=== PATIENT | female | born 2000 | race Caucasian/White ===

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

== ENCOUNTER 2021-10-12 04:30 | Emergency (ER) | payer MEDICAID, OTHER ==
[2021-10-12 05:11] VITALS: BP 120/76; PULSE 113
[2021-10-12] MEDS ORDERED: Sodium Chloride 0.9% 1,000 ML IV ONE (05:26)
[2021-10-12] MEDS ORDERED: diphenhydrAMINE 50 MG/ML SDV IVPUSH ONE (05:26)
[2021-10-12] MEDS ORDERED: Ketorolac 30 MG/ML SDV IVPUSH ONE (05:26)
--- NOTE | 2021-10-12 05:30 | EDM.PDOC ---
<YaniDominickian - Last Filed: 10/12/21 07:32> ED HPI GENERAL MEDICAL PROBLEM - General Chief Complaint: Headache Stated Complaint: SHARP PAIN IN HEAD GOING DOWN BACK Time Seen by Provider: 10/12/21 05:25 - Related Data Allergies Allergy/AdvReac Type Severity Reaction Status Date / Time No Known Allergies Allergy Verified 10/12/21 05:03 Home Meds: Home Meds . [No Known Home Meds] 05/08/15 [History] Course - Re-Assessments/Exams Free Text/Narrative Re-Assessment/Exam: 10/12/21 I assumed care of the pt from Janeth CARMEN at 0700HR shift change with pt sleeping comfortably, await UA results. The PA's plan is to d/c the pt home with Dx of tension CHILDERS if the UA is clear of infection. No changes to CC/HPI, Hx, ROS, or exam as documented by the PA for this encounter. Departure - Departure Disposition: Home, Self-Care 01 Clinical Impression: Tension-type headache - Discharge Information *PRESCRIPTION DRUG MONITORING PROGRAM REVIEWED*: Not Applicable *COPY OF PRESCRIPTION DRUG MONITORING REPORT IN PATIENT JAIME: Not Applicable Instructions: Tension Headache, Adult, [id number] Referrals: PCP,None [Primary Care Provider] - Forms: ED Department Discharge Additional Instructions: rest today alternate tylenol and ibuprofen 600mg every 4 hours as needed for discomfort increase fluid intake ice or heat to area depending on personal preference. <Janeth Rojas - Last Filed: 10/13/21 03:45> ED HPI GENERAL MEDICAL PROBLEM - General Source of Information: Reports: Patient, RN History Limitations: Reports: No Limitations - History of Present Illness INITIAL COMMENTS - FREE TEXT/NARRATIVE: ED with c/o severe headache back of neck going up back of head and down mid back, Nausea and vomiting tonight. Prior hx migraine headaches similar but have not felt this bad. Tried Ketrolac last cindy and did not help, unable to sleep. Vomited few times. No fever or chills. No cough. No urinary sx. Frontal Headache Pain Score (Numeric/FACES): 8 Past Medical History - Past Health History Medical/Surgical History: Denies Medical/Surgical History HEENT History: Reports: None Cardiovascular History: Reports: None Respiratory History: Reports: None Gastrointestinal History: Reports: None Genitourinary History: Reports: None PHLEBOTOMIST History: Reports: None Musculoskeletal History: Reports: None Neurological History: Reports: None Psychiatric History: Reports: None Endocrine/Metabolic History: Reports: None Hematologic History: Reports: None Immunologic History: Reports: None Oncologic (Cancer) History: Reports: None Dermatologic History: Reports: None - Infectious Disease History Infectious Disease History: Reports: Chicken Pox - Past Surgical History Head Surgeries/Procedures: Reports: None HEENT Surgical History: Reports: Oral Surgery Other HEENT Surgeries/Procedures: wisdom teeth Female Surgical History: Reports: None Social & Family History - Family History Family Medical History: No Pertinent Family History - Tobacco Use Tobacco Use Status *Q: Never Tobacco User Second Hand Smoke Exposure: No - Caffeine Use Caffeine Use: Reports: Energy Drinks - Recreational Drug Use Recreational Drug Use: No - Living Situation & Occupation Living situation: Reports: with Family ED ROS GENERAL - Review of Systems Review Of Systems: Comprehensive ROS is negative, except as noted in HPI. - Physical Exam Exam: See Below Exam Limited By: No Limitations General Appearance: Alert, Mild Distress Eye Exam: Bilateral Eye: EOMI, PERRL Ears: Normal External Exam, Normal TMs Nose: Normal Inspection Throat/Mouth: Normal Inspection Head Exam: Atraumatic, Normocephalic, Scalp Tenderness Neck: Full Range of Motion, Tender Lateral. No: Limited Range of Motion Respiratory/Chest: No Respiratory Distress, Lungs Clear, Normal Breath Sounds Cardiovascular: Normal Peripheral Pulses GI/Abdominal: Normal Bowel Sounds Neuro Exam (Abbreviated): Alert, Oriented, Normal Cognition, Normal Gait Back Exam: Normal Inspection, CVA Tenderness (R) Extremities: Normal Inspection Psychiatric: Normal Affect, Tearful Skin Exam: Warm, Dry, Intact, Normal Color Course - Vital Signs Last Recorded V/S: Last Vital Signs Temp 100.0 F 10/12/21 05:04 Pulse 113 H 10/12/21 05:04 Resp 18 10/12/21 05:04 BP 120/76 10/12/21 05:04 Pulse Ox 98 10/12/21 05:04 - Orders/Labs/Meds Labs: Laboratory Tests 10/12/21 10/12/21 10/12/21 Range/Units 05:30 05:30 07:11 WBC 9.8 (5.0-10.0) 10^3/uL RBC 4.54 (4.2-5.4) 10^6/uL Hgb 14.4 D (12.0-16.0) g/dL Hct 41.6 (37.0-47.0) % MCV 91.6 D (80-100) fL MCH 31.7 (27.0-34.0) pg MCHC 34.6 (33.0-35.0) g/dL Plt Count 356 D (150-450) 10^3/uL Neut % (Auto) 83.6 H (42.2-75.2) % Lymph % (Auto) 2.8 L (20.5-50.1) % [place] % (Auto) 12.7 H (2-8) % Eos % (Auto) 0.7 L (1.0-3.0) % Baso % (Auto) 0.2 (0.0-1.0) % Sodium 137 (136-145) mmol/L Potassium 4.3 (3.5-5.1) mmol/L Chloride 101 (98-107) mmol/L Carbon Dioxide 23 (21-32) mmol/L Anion Gap 17.3 H (7-13) mEq/L BUN 7 (7-18) mg/dL Creatinine 0.74 (0.55-1.02) mg/dL Est Cr Clr Drug Dosing 95.11 mL/min Estimated GFR (MDRD) > 60 BUN/Creatinine Ratio 9.5 (No establ ref range) Glucose 92 (70-99) mg/dL Calcium 9.1 (8.5-10.1) mg/dL Total Bilirubin 0.6 (0.2-1.0) mg/dL AST 20 (15-37) U/L ALT 23 (14-59) U/L Alkaline Phosphatase 81 (46-116) U/L Total Protein 7.9 (6.4-8.2) g/dL Albumin 4.4 (3.4-5.0) g/dL Globulin 3.5 Albumin/Globulin Ratio 1.3 Urine Color Yellow (YELLOW) Urine Appearance Slightly cloudy (CLEAR) Urine pH 8.5 (5.0-9.0) Ur Specific [place] 1.015 (1.005-1.030) Urine Protein Negative (NEGATIVE) Urine Glucose (UA) Negative (NEGATIVE) Urine Ketones 15 H (NEGATIVE) Urine Occult Blood Negative (NEGATIVE) Urine Nitrite Negative (NEGATIVE) Urine Bilirubin Negative (NEGATIVE) Urine Urobilinogen 1.0 (0.2-1.0) mg/dL Ur Leukocyte Esterase Negative (NEGATIVE) Meds: Medications Discontinued Medications Generic Name Dose Route Start Last Admin Trade Name Freq PRN Reason Stop Dose Admin Diphenhydramine HCl 50 mg 10/12/21 05:26 10/12/21 05:45 Diphenhydramine 50 Mg/Ml Sdv IVPUSH 10/12/21 05:27 50 mg ONETIME ONE Administration Sodium Chloride 1,000 mls @ 999 mls/hr 10/12/21 05:26 10/12/21 05:50 Normal Saline IV 10/12/21 06:26 999 mls/hr .BOLUS ONE Administration Ketorolac Tromethamine 30 mg 10/12/21 05:26 10/12/21 05:46 Ketorolac 30 Mg/Ml Sdv IVPUSH 10/12/21 05:27 30 mg ONETIME ONE Administration Departure - Departure Time of Disposition: 06:29 Condition: Good - Discharge Information *PRESCRIPTION DRUG MONITORING PROGRAM REVIEWED*: No Sepsis Event Note (ED) - Evaluation Sepsis Screening Result: No Definite Risk
[2021-10-12 06:01] LABS: ANION GAP 17.3 mEq/L (7-13); CHLORIDE,CL 101 mmol/L (98-107); SODIUM,NA 137 mmol/L (136-145)
== END 2021-10-12 07:43 | disposition home or self-care (01) ==
LOC: DL.ED 04:30
DX: G44.209 Tension-type headache, unspecified, not intractable (principal)
CPT/HCPCS: 36415; 80053; 81003; 85025; 96374; 96375; 99284; J1200; J1885; J7030

== ENCOUNTER 2022-04-17 11:01 | Emergency (ER) | payer MEDICAID ==
[2022-04-17] MEDS ORDERED: methylPREDNISolone Sodium Succinate 125 MG/2 ML SDV IM ONE (11:22)
[2022-04-17] MEDS ORDERED: diphenhydrAMINE 50 MG/ML SDV IM ONE (11:22)
[2022-04-17 11:24] VITALS: BP 122/73; PULSE 87
== END 2022-04-17 11:47 | disposition home or self-care (01) ==
LOC: DL.ED 11:01
DX: L50.0 Allergic urticaria (principal)
CPT/HCPCS: 96372; 99283; J1200; J2930

== ENCOUNTER 2023-05-09 18:53 | Emergency (ER) | payer OTHER, BC, MEDICAID ==
[2023-05-09 18:48] VITALS: BP 128/95; PULSE 87
[2023-05-09 18:49] LABS: BASOPHILS PERCENT AUTO 0.2 % (0.0-1.0); EOSINOPHILS PERCENT AUTO 1.1 % (1.0-3.0); HEMATOCRIT 37.8 % (37.0-47.0); HEMOGLOBIN 13.3 g/dL (12.0-16.0); LYMPHOCYTES PERCENT AUTO 22.3 % (20.5-50.1); MEAN CORPUSCULAR HGB CONC 35.2 g/dL (33.0-35.0); MEAN CORPUSCULAR VOLUME 91.1 fL (80-100); MONOCYTES PERCENT AUTO 9.5 % (2-8); NEUTROPHILS PERCENT AUTO 66.9 % (42.2-75.2); PLATELET COUNT,PLT 368 10^3/uL (150-450); RED BLOOD CELL COUNT 4.15 10^6/uL (4.2-5.4); WHITE BLOOD CELL COUNT,WBC 10.1 10^3/uL (5.0-10.0)
[~2023-05-09 18:53] MED LIST: Iopamidol 612 MG/ML 100 ML Bottle IVPUSH ONE
== END 2023-05-09 20:13 | disposition home or self-care (01) ==
LOC: DL.ED 18:53
DX: R10.12 Left upper quadrant pain (principal); M54.2 Cervicalgia; Z86.16 Personal history of COVID-19; V89.2XXA Person injured in unspecified motor-vehicle accident, traffic, initial encounter; Y92.410 Unspecified street and highway as the place of occurrence of the external cause
CPT/HCPCS: 36415; 70450; 71260; 72125; 72128; 72131; 74177; 84703; 85025; 99285; Q9967

== ENCOUNTER 2023-07-18 08:38 | Emergency (ER) | payer BC, MEDICAID ==
[2023-07-18] MEDS ORDERED: Sodium Chloride 0.9% 10 ML Syringe FLUSH PRN (08:55)
[2023-07-18] MEDS ORDERED: Sodium Chloride 0.9% 1,000 ML IV ONE (08:57)
[2023-07-18] MEDS ORDERED: Ondansetron 4 MG/2 ML SDV IV ONE (08:57)
[2023-07-18] MEDS ORDERED: Famotidine 20 MG/2 ML SDV IVPUSH ONE (08:58)
[2023-07-18 09:05] VITALS: BP 116/85; PULSE 70
[2023-07-18 09:08] LABS: BASOPHILS PERCENT AUTO 0.3 % (0.0-1.0); EOSINOPHILS PERCENT AUTO 1.5 % (1.0-3.0); HEMATOCRIT 41.5 % (37.0-47.0); HEMOGLOBIN 14.3 g/dL (12.0-16.0); LYMPHOCYTES PERCENT AUTO 23.2 % (20.5-50.1); MEAN CORPUSCULAR HEMOGLOBIN 32.1 pg (27.0-34.0); MEAN CORPUSCULAR HGB CONC 34.5 g/dL (33.0-35.0); PLATELET COUNT,PLT 389 10^3/uL (150-450); RED BLOOD CELL COUNT 4.46 10^6/uL (4.2-5.4); WHITE BLOOD CELL COUNT,WBC 6.7 10^3/uL (5.0-10.0)
[2023-07-18 09:10] LABS: APPEARANCE,URINE CLOUDY (CLEAR); BILIRUBIN,URINE NEGATIVE (NEGATIVE); COLOR,URINE YELLOW (YELLOW); GLUCOSE,URINE NEGATIVE (NEGATIVE); KETONES,URINE NEGATIVE (NEGATIVE); LEUKOCYTE ESTERASE,URINE SMALL (NEGATIVE); NITRITE,URINE NEGATIVE (NEGATIVE); OCCULT BLOOD,URINE TRACE-INTACT (NEGATIVE); PH,URINE 6.5 (5.0-9.0); PROTEIN,URINE NEGATIVE (NEGATIVE); UROBILINOGEN,URINE 0.2 mg/dL (0.2-1.0)
[2023-07-18 09:29] LABS: HCG QUALITATIVE,SERUM NEGATIVE (NEGATIVE)
[2023-07-18 09:31] LABS: A/G RATIO 1.1; ALANINE AMINOTRANSFERASE,ALT 19 U/L (14-59); ALKALINE PHOSPHATASE 87 U/L (46-116); ASPARTATE AMNIOTRANSFERASE,AST 11 U/L (15-37); BILIRUBIN TOTAL 0.3 mg/dL (0.2-1.0); BLOOD UREA NITROGEN,BUN 8 mg/dL (7-18); BUN/CREATININE RATIO 9.6 (No establ ref range); CALCIUM 8.8 mg/dL (8.5-10.1); CARBON DIOXIDE,CO2 28 mmol/L (21-32); CHLORIDE,CL 104 mmol/L (98-107); CREATININE 0.83 mg/dL (0.55-1.02); EST CRCL DRUG DOSING (CG) 83.37 mL/min; GLUCOSE RANDOM 103 mg/dL (70-99); LIPASE 21 U/L (16-77); PROTEIN TOTAL,TP 7.5 g/dL (6.4-8.2); SODIUM,NA 139 mmol/L (136-145)
[2023-07-18 09:31] LABS: AMORPHOUS SEDIMENT,URINE MODERATE /HPF (NOT SEEN); BACTERIA,URINE MODERATE /HPF (0-FEW/HPF); EPITHELIAL CELLS,URINE MANY /HPF (NOT SEEN)
[2023-07-18 09:32] LABS: RBC,URINE 0-5 /HPF (0-5)
[2023-07-18 09:33] LABS: ESTIMATED GFR 102 mL/min (>=60); LACTIC ACID 0.7 mmol/L (0.4-2.0)
== END 2023-07-18 11:06 | disposition home or self-care (01) ==
LOC: DL.ED 08:38
DX: N76.0 Acute vaginitis (principal); B96.89 Other specified bacterial agents as the cause of diseases classified elsewhere; R11.2 Nausea with vomiting, unspecified
CPT/HCPCS: 36415; 80053; 81001; 83605; 83690; 84703; 85025; 87086; 87491; 87563; 87591; 96361; 96374; 96375; 99283; 99284-25; J2405; J3490; J7030

== ENCOUNTER 2025-02-04 19:59 | Emergency (ER) | payer BC, MEDICAID ==
[2025-02-04] MEDS: Ketorolac 30 MG/ML SDV IM ONE (20:34)
[2025-02-04 20:44] LABS: AMPHETAMINES,URINE NEGATIVE (NEGATIVE); BARBITURATES,URINE NEGATIVE (NEGATIVE); BENZODIAZEPINE,URINE NEGATIVE (NEGATIVE); MDMA (ECSTASY), URINE NEGATIVE (NEGATIVE); METHADONE,URINE NEGATIVE (NEGATIVE); METHAMPHETAMINES,URINE NEGATIVE (NEGATIVE); OPIATES,URINE NEGATIVE (NEGATIVE); OXYCODONE,URINE NEGATIVE (NEGATIVE); PHENCYCLIDINE,URINE NEGATIVE (NEGATIVE); TCA,URINE NEGATIVE (NEGATIVE)
[2025-02-04] MEDS: Take Home: traMADol 50 MG, 4 Tab Pack PO ONE (22:40)
[2025-02-04 22:47] VITALS: BP 134/82; PULSE 72
== END 2025-02-04 22:43 | disposition home or self-care (01) ==
LOC: DL.ED 19:59
DX: R68.84 Jaw pain (principal); Z86.16 Personal history of COVID-19
CPT/HCPCS: 70100; 80305; 81025; 96372; 99282; 99283; A9270; J1885

== ENCOUNTER 2025-02-06 01:14 | Emergency (ER) | payer BC ==
[2025-02-06 01:51] VITALS: BP 126/90; PULSE 79
[2025-02-06] MEDS: Acetaminophen/HYDROcodone 325-5 MG Tab PO ONE (02:02)
== END 2025-02-06 05:45 | disposition home or self-care (01) ==
LOC: DL.ED 01:14
DX: K08.89 Other specified disorders of teeth and supporting structures (principal); Z86.16 Personal history of COVID-19
CPT/HCPCS: 70486; 99283; A9270